=== PATIENT | male | born 1975 | race African-American/Black ===

== ENCOUNTER 2021-05-24 09:31 | Emergency (ER) | payer OTHER, MEDICAID ==
[~2021-05-24] VITALS: Ht 165.1 cm; Wt 80.0 kg
[2021-05-24 13:07] LABS: CHLORIDE 104 mEq/L (98-107)
[2021-05-24 13:11] LABS: ETHANOL BLOOD < 10 mg/dL
[2021-05-24 13:15] LABS: BASOPHILS % 0.4 % (0.0-2.0); EOSINOPHILS % 2.3 % (0.0-5.0); HEMATOCRIT. 35.6 % (42.0-52.0); HEMOGLOBIN. 11.8 g/dL (14.0-18.0); LYMPHOCYTES % 31.9 % (20.0-50.0); MEAN CORPUSCULAR HEMOGLOBIN 26.9 pg (28.0-32.0); MEAN CORPUSCULAR VOLUME 81.2 fL (80.0-94.0); MEAN PLATELET VOLUME 8.1 fl (7.4-10.4); MONOCYTES % 7.5 % (2.0-8.0); NEUTROPHILS % 57.9 % (40.0-76.0); PLATELET 449 x1000/uL (130-400); RED BLOOD CELL COUNT 4.38 mill/uL (4.7-6.1); RED CELL DISTRIBUTION WIDTH 15.5 % (11.6-14.6)
[2021-05-24 13:45] LABS: CLARITY URINE CLEAR (CLEAR); COLOR URINE YELLOW (YELLOW); KETONES URINE NEGATIVE (NEGATIVE); LEUKOCYTE ESTERASE URINE NEGATIVE (NEGATIVE); NITRITE URINE NEGATIVE (NEGATIVE); OCCULT BLOOD URINE NEGATIVE (NEGATIVE); PH URINE 6.5 (4.5-8.0); PROTEIN URINE NEGATIVE (NEGATIVE); UROBILINOGEN URINE 0.2 E.U./dL (0.2-1.0)
[2021-05-24 14:38] LABS: *AMPHETAMINES SCREEN URINE PRESUMTIVE POSITIVE (NEGATIVE); *BARBITURATES SCREEN URINE NEGATIVE (NEGATIVE); *BENZODIAZEPINES SCREEN URINE NEGATIVE (NEGATIVE); *COCAINE SCREEN URINE NEGATIVE (NEGATIVE)
[2021-05-24 14:40] LABS: CANNABINOID URINE SCREEN PRESUMTIVE POSITIVE (NEGATIVE)
[2021-05-24 14:52] LABS: METHADONE URINE SCREEN NEGATIVE (NEGATIVE)
[2021-05-24 14:55] LABS: OPIATES URINE SCREEN NEGATIVE (NEGATIVE); PHENCYCLIDINE URINE SCREEN NEGATIVE (NEGATIVE)
[2021-05-24] MEDS ORDERED: LORAZEPAM 1MG TABLET PO ONE (22:00)
[2021-05-24] MEDS ORDERED: HALOPERIDOL 5MG TABLET PO ONE (22:00)
[2021-05-24] MEDS ORDERED: LORAZEPAM 2MG/ML CPJ IM STA (22:08)
[2021-05-24] MEDS ORDERED: OLANZAPINE 10 MG/VIAL IM ONE (22:15)
[2021-05-25] MEDS: HALOPERIDOL 5MG TABLET PO SCH (20:00)
[2021-05-26] MEDS: HALOPERIDOL 5MG TABLET PO SCH (06:00)
[2021-05-26 10:02] VITALS: BP 138/76
== END 2021-05-26 10:24 | disposition home or self-care (01) ==
LOC: ER 09:31
DX: F23 Brief psychotic disorder (principal); R45.1 Restlessness and agitation; Z20.822 Contact with and (suspected) exposure to COVID-19; F15.10 Other stimulant abuse, uncomplicated; Z75.1 Person awaiting admission to adequate facility elsewhere; Z59.00 Homelessness unspecified; Z91.14 Patient's other noncompliance with medication regimen; Z73.6 Limitation of activities due to disability
CPT/HCPCS: 36415; 80053; 80305; 80320; 81003; 85025; 96372; 99285; C9803; J1630; J2060; J3490; U0003; U0005; G0480